=== PATIENT | male | born 1990 | race African-American/Black ===

== ENCOUNTER 2024-05-06 12:53 | Emergency (ER) | payer BC, SELFPAY ==
[2024-05-06 13:10] VITALS: BP 145/90; PULSE 84; RESP 20; TEMP 36.9; O2SAT 99; BMI 24.0
--- NOTE | 2024-05-06 13:11 | ED_ITS ---
Discharge Plan Disposition Patient Disposition: Home, Self-Care Condition: Good Prescriptions Prescriptions: New doxycycline hyclate 100 mg capsule 100 mg PO Q12 10 Days Qty: 20 0RF methylprednisolone 4 mg Tablets,Dose Pack 4 mg PO DIRECTED 6 Days Qty: 21 0RF Rx Instructions: Take 1 pack as directed for 6 days cnwnowcukykhlcd-ermdcjkwz-[id number] [Bromfed DM] 2-30-10 mg/5 mL Syrup 5 ml PO Q6H PRN (Reason: Cough) Qty: 240 0RF No Action venlafaxine 37.5 mg capsule,extended release 24hr 37.5 mg PO DAILY bupropion HCl 150 mg tablet extended release 24 hr 150 mg PO DAILY hydrochlorothiazide 12.5 mg tablet 12.5 mg PO DAILY Referrals Follow up/Referrals: Anders Meneses MD [Primary Care Provider] - See instructions Activity Restrictions/Add. Instructions Additional Instructions/Restrictions: Drink plenty of fluids. Take tylenol or ibuprofen for pain or fever. Take the medications as directed. Follow up with your regular doctor. GO TO THE ER FOR ANY WORSENING SYMPTOMS Clinical Impressions Clinical Impression: Sinusitis, Urethritis Instructions Patient Instructions: DI for Sinusitis, DI for Urethritis, Doxycycline, Methylprednisolone Print Language Print Language: Syriac Discharge ED Provider: Anders Nava [facility] [place] General Stated complaint: sore throat, poss sinus inf. Time Seen by Provider: 05/06/24 13:11 Related Data Home Medications ?Medication ?Instructions ?Recorded ?Confirmed bupropion HCl 150 mg 24 hr tablet, 150 mg PO DAILY 05/06/24 05/06/24 extended release hydrochlorothiazide 12.5 mg tablet 12.5 mg PO DAILY 05/06/24 05/06/24 venlafaxine 37.5 mg 37.5 mg PO DAILY 05/06/24 05/06/24 capsule,extended release 24 hr Previous Rx's ?Medication ?Instructions ?Recorded omnmmaamwbzsbef-nmpnhzmkdclvsvo-MM 5 ml PO Q6H PRN Cough #240 mL 05/06/24 2 mg-30 mg-10 mg/5 mL oral syrup (Bromfed DM) doxycycline hyclate 100 mg capsule 100 mg PO Q12 10 days #20 caps 05/06/24 methylprednisolone 4 mg tablets in 4 mg PO DIRECTED 6 days #21 tabs 05/06/24 a dose pack Allergies Allergy/AdvReac Type Severity Reaction Status Date / Time Pertussis Vaccines Allergy Unknown Verified 05/06/24 13:24 allergy reaction [facility] Disclaimer: The information contained in this section may have been updated after the patient was seen, as this information can be updated by other users. Medical History (Updated 05/06/24 @ 13:42 by Anders Nava APRN) UTI (urinary tract infection) Depression Anxiety Hypertension Social History Smoking Status: Never smoker alcohol intake: never current occupational status: employed Travel in the last 8 weeks: None ROS Obtained: Yes All systems reviewed & no additional complaints except as documented Constitutional Constitutional: Reports poor appetite Eyes Eyes: Reports system reviewed and no additional complaints, except as documented ENT Ears, Nose, Mouth, and Throat: Reports as per HPI Cardiovascular Cardiovascular: Reports system reviewed and no additional complaints, except as documented and Denies chest pain Respiratory Respiratory: Denies shortness of breath, Denies chest congestion, Reports cough, Denies stridor and Denies wheezing Gastrointestinal Gastrointestingal: Reports system reviewed and no additional complaints, except as documented; Denies abdominal pain, diarrhea or vomiting Musculoskeletal Musculoskeletal: Reports system reviewed and no additional complaints, except as documented and Denies arthralgias Integumentary/Breasts Skin/Breast: Reports system reviewed and no additional complaints, except as documented and Denies rash Neurologic Neurologic: Denies paresthesias Allergic/Immunologic Allergic/Immunologic: Denies wheezing Physical Exam General General appearance: alert and in no apparent distress Eye Eye exam: Present normal appearance, PERRL and EOMI ENT ENT exam: Present mucous membranes moist and normal external ear exam Expanded ENT Exam External ear exam: Present normal external inspection TM/Canal exam: Bilateral TM: erythema and bulging Nose exam: Absent sinus tenderness Nasal speculum exam: Bilateral: normal Mouth exam: Present normal external inspection; Absent drooling Teeth exam: Present normal inspection Throat exam: Present tonsillar erythema and tonsillomegaly Neck Neck exam: Present normal inspection, full ROM and trachea midline; Absent tenderness, lymphadenopathy or thyromegaly Chest Chest inspection: Present normal inspection and symmetric chest wall rise; Absent tenderness or rash Respiratory Respiratory exam: Present normal lung sounds bilaterally; Absent respiratory distress, wheezes, stridor or accessory muscle use Cardiovascular Cardiovascular exam: Present regular rate, normal rhythm and normal heart sounds Abdominal Exam Abdominal exam: Present soft; Absent distention, tenderness, guarding, rebound or rigidity Extremities Exam Extremities exam: Present normal inspection, full ROM and normal capillary refill; Absent tenderness or calf tenderness Back Exam Back exam: Present normal inspection and full ROM; Absent tenderness Neurological Exam Neurological exam: Present alert and oriented X3 Psychiatric Psychiatric exam: Present normal affect and normal mood Skin Skin exam: Present warm, dry, intact and normal color Lymphatic Lymphatic Findings: no adenopathy Medical Decision Making Medical Records Medical records reviewed: No I reviewed the patient's medical records. Screening: Per USPSTF and CDC recommendations, given the prevalence of disease in our region, it is our hospital?s policy to screen for HIV and viral Hepatitis for all patients aged 18 and over and those with ongoing risk factors. [place] Inquiry Pt receiving controlled substance: No Lab Data Lab results reviewed: Yes I reviewed the patient's lab results.
[2024-05-06 13:19] LABS: Microscopic, Urine URINE MICROSCOPIC (MICROSCOPIC)
[2024-05-06 13:32] LABS: Appearance,Urine CLEAR (Clear); Bilirubin,Urine Negative (Negative); Blood, Urine Negative (Negative); Color,Urine YELLOW (Yellow); Glucose,Urine (UA) Negative (Negative); Ketones,Urine Negative (Negative); Leukocyte Esterase,Urine Negative (Negative); Nitrate,Urine Negative (Negative); PH,Urine 8.5 (5.0-8.5); Protein,Urine Negative (Negative); Urobilinogen,Urine 0.2 EU/dl (0.2)
[2024-05-06 13:47] VITALS: BP 145/90; PULSE 84; RESP 20; TEMP 36.9; O2SAT 99
[2024-05-06 14:05] LABS: Bacteria,Urine Trace /lpf; Squamous Epithelial Cell,Urine Occasional #/hpf (0-5); WBC,Urine Occasional #/hpf (0-3)
== END 2024-05-06 13:50 | disposition home or self-care (01) ==
PROVIDERS: Emergency Provider Nurse Practitioner Family; PCP Family Medicine
DX: J32.9 Chronic sinusitis, unspecified (principal); N34.2 Other urethritis; J02.9 Acute pharyngitis, unspecified; R09.89 Other specified symptoms and signs involving the circulatory and respiratory systems
CPT/HCPCS: 81001; 87086; 99212; G0381

== ENCOUNTER 2025-04-05 15:01 | Outpatient (CLI) | payer BC, SELFPAY ==
[2025-04-05 20:05] LABS: Coronavirus 19, PCR Not Detected (NotDetected); Influenza A, PCR Not Detected (NotDetected); Influenza B, PCR Not Detected (NotDetected)
--- OUTSIDE RECORDS SUMMARY | 2025-04-06 09:07 | XMS_ITS | Clinical Summary ---
Author Organization [facility] Address [address] [place] [address] Care Team Providers Care Dat Instructor Name Role Phone Mariia Butler APRN Primary Care Provider + Allergies Active Allergy Reactions Criticality Noted Date Comments Pertussis Vaccines Other (See Comments) 018 Unknown reaction, was told allergic as a child. Medications hydroCHLOROthiaz gasper (HYDRODIURIL) 12.5 MG tablet Take 1 tablet by mouth Daily. Active venlafaxine (EFFEXOR) 75 MG tablet Take 1 tablet by mouth Daily. Active buPROPion XL (WELLBUTRIN XL) 150 MG 24 hr tablet Take 1 tablet by mouth Daily. Active Social History Tobacco Use Types Packs/Day Years Used Date Smoking Tobacco: Never Smokeless Tobacco: Never Tobacco Cessation:Counseling Given: Not Answered Abuse Screen Answer Date Recorded Unsafe at Home or Work/School Not on file Feels Threatened by Someone? Not on file 02/2024 Does Anyone Keep You from Co ntacting Others or Doint Things Outside the Home? Not on file 02/19/2024 Physical Sign of Abuse Present Not on file 0 02/19/2024 Housing Stability Answer Date Recorded Current Living Arrangements Not on file 02/2023 Potentially Unsafe Housing Conditions Not on deon e 04/20/2023 Family and Community Support Answer Cooper e Recorded Help with Day-to-Day Activities Not on file 04/20/2023 Lonely or Isolated Not on file 04/20/2023 Employment Answer Date Recorded Do you want help finding or keeping work or a shyla b? Not on file 04/20/2023 Disabilities Answer Date Recorded Concentrating, Remembering, or Making Decisions Difficulty Not on file 04/20/2023 Doing Errands Independently Difficulty Not on fi le 04/20/2023 Education Answer Date Recorded Help with school or training? Not on file Preferred Language Not on file 04/20/2023 Sex and Gender Information Value Date Recorded Sex Assigned at Not on file Legal Sex Male 10:50 AM EDT Gender Identity Not on file Sexual Orientation Not on file Last Filed Vital Signs Vital Sign Reading Time Taken Comments Blood Pressure 144/90 01/31/2023 7:41 AM EDT Pulse 75 01/31/2023 10:42 AM EDT Temperature 36.4 C (97.5 F) 01/31/2023 7:41 AM EDT Respiratory Rate 16 01/31/2023 7:41 AM EDT Oxygen Saturation 97% 01/31/2023 10:42 AM EDT Inhaled Oxygen Concentration - - Weight 61.2 kg (135 lb) 01/31/2023 7:41 AM EDT Height 172.7 cm (5' 8 ) 01/31/2023 7:41 AM EDT Body Mass Index 20.53 01/31/2023 7:41 AM EDT Plan of Treatment Health Maintenance Due Date Last Done Comments ANNUAL PHYSICAL 1991 HEPATITIS C SCREENING 1991 TDAP/TD VACCINES (2 - Tdap) 12/30/2012 12/30/2002 INFLUENZA VACCINE 02/11/2025 Pneumococcal Vaccine 0-49 Aged Out No longer eligible based on patient's age to complete this topic Insurance Care Teams Dat Instructor Relationship Specialty Start Date End Date Mariia Butler APRN [id number] [place] [address] PCP - General Family Medicine 01/31/23
== END 2025-04-05 23:59 ==
LOC: LAB.DROPOF 04-06 08:59
PROVIDERS: PCP Nurse Practitioner; Visit Provider Nurse Practitioner
DX: J06.9 Acute upper respiratory infection, unspecified (principal)
CPT/HCPCS: 87631